=== PATIENT | female | born 1995 | race Asian ===

== ENCOUNTER 2017-05-27 04:51 | Emergency (ER) | payer MEDICAID ==
--- NOTE | 2017-05-27 05:03 | ED Physician Documentation ---
PD HPI FEMALE - Stated complaint Stated Complaint: FEMALE - Chief complaint Chief Complaint: Abd Pain - History obtained from History obtained from: Patient - History of Present Illness Timing - onset: Today Timing - details: Abrupt onset Associated symptoms: Pelvic pain, Hematuria Recently seen: Not recently seen - Additional information Additional information: Patient is a 21 year old female who is presenting to the emergency department for hematuria. patient states that she had rough sex and when she went to pee today the stream was mainly blood. Review of Systems Constitutional: denies: Fever, Chills Eyes: reports: Reviewed and negative Ears: reports: Reviewed and negative Nose: reports: Reviewed and negative Throat: reports: Reviewed and negative Cardiac: reports: Reviewed and negative Respiratory: reports: Reviewed and negative GI: denies: Abdominal Pain, Nausea, Vomiting, Constipation, Diarrhea : reports: Dysuria, Frequency, Hematuria. 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 - Past Surgical History Past Surgical History: No - Present Medications Home Medications: Ambulatory Orders Medication Instructions Recorded Confirmed Phenazopyridine HCl [Pyridium] 200 mg PO TID PRN #6 tablet 05/27/17 Sulfamethox/Trimeth 800/160 1 each PO BID #14 tablet 05/27/17 [Bactrim Ds 800/160] - Allergies Allergies/Adverse Reactions: Allergies Allergy/AdvReac Type Severity Reaction Status Date / Time No Known Drug Allergies Allergy Verified 05/27/17 04:59 - Social History Does the pt smoke?: No Smoking Status: Never smoker Does the pt drink ETOH?: No Does the pt have substance abuse?: No - Immunizations Immunizations are current?: Yes - POLST Patient has POLST: No PD ED PE NORMAL - Vitals Vital signs reviewed: Yes - General General: Alert and oriented X 3, No acute distress - HEENT HEENT: Atraumatic, PERRL - Neck Neck: Supple, no meningeal sign - Cardiac Cardiac: RRR - Respiratory Respiratory: No respiratory distress - Abdomen Abdomen: Soft - Derm Derm: Normal color, Warm and dry - Extremities Extremities: No deformity, No edema - Neuro Neuro: Alert and oriented X 3, No motor deficit, Normal speech Eye Opening: Spontaneous Motor: Obeys Commands Verbal: Oriented GCS Score: 15 PD ED PE EXPANDED - Female Female : Normal external, Normal exam. No: Skin lesions, Vaginal Bleeding, Vaginal Discharge Results - Vitals Vitals: Vital Signs - 24 hr 05/27/17 05/27/17 05/27/17 04:55 05:15 06:16 Temperature 36.5 C 36.7 C Heart Rate 96 78 Respiratory 18 17 16 Rate Blood Pressure 127/95 H 109/86 H O2 Saturation 100 97 Oxygen O2 Source Room air - Labs Labs: Laboratory Tests 05/27/17 05:17 Urine Color RED/BLOODY Urine Clarity BLOODY Urine pH 6.5 Ur Specific [place] >=1.030 H Urine Protein Urine Glucose (UA) NEGATIVE Urine Ketones NEGATIVE Urine Occult Blood LARGE H Urine Nitrite Urine Bilirubin COLOR INTERFERENCE Urine Urobilinogen Ur Leukocyte Esterase Urine RBC TNTC H Urine WBC 11-25 H Ur Squamous Epith Cells RARE Squamous Urine Bacteria Many H Ur Microscopic Review INDICATED Urine Culture Comments INDICATED Urine HCG, Qual NEGATIVE PD MEDICAL DECISION MAKING - ED course Complexity details: reviewed old records, reviewed results, re-evaluated patient , considered differential, d/w patient ED course: Patient was seen and examined at bedside. Patient's urine was grossly bloody but there was no sign of urethral or vaginal trauma. Patient's urinalysis was consistent with cystitis. Patient was educated on proper prevention and treated with bactrim and pyridium. Patient required no further work up and was stable for discharge with outpatient follow up. Departure - Departure Disposition: 01 Home, Self Care Clinical Impression: Cystitis with hematuria Condition: Good Instructions: ED UTI Cystitis Female Follow-Up: primary,care provider [Other] - Within 3 Days Prescriptions: Phenazopyridine HCl [Pyridium] 200 mg PO TID PRN #6 tablet PRN Reason: dysuria Sulfamethox/Trimeth 800/160 [Bactrim Ds 800/160] 1 each PO BID #14 tablet Comments: Your symptoms today are being caused by cystitis or bladder infection. You had your first dose of antibiotics today and will need to be on them for the next week. You should make sure you stay well hydrated. You should also make sure that you urinate after every sexual encounter. You should follow up with your doctor if your symptoms persist. You may return to the emergency department at any time for new, worsening or uncontrollable symptoms. Discharge Date/Time: 05/27/17 06:16
[2017-05-27 05:31] LABS: GLUCOSE, URINE (UA) NEGATIVE (NEGATIVE); KETONES,URINE (UA) NEGATIVE (NEGATIVE); OCCULT BLOOD,URINE LARGE (NEGATIVE); PH,URINE 6.5 PH (5.0-7.5)
[2017-05-27 05:33] LABS: CLARITY,URINE BLOODY (CLEAR)
[2017-05-27 05:34] LABS: BILIRUBIN,URINE COLOR INTERFERENCE (NEGATIVE)
[2017-05-27 05:35] LABS: BACTERIA,URINE Many /HPF (None Seen); HCG UR QUAL NEGATIVE; RBC,URINE TNTC /HPF (0-5); SQUAMOUS EPITHELIAL CELL,UR RARE Squamous (<= Few)
[2017-05-27] MEDS ORDERED: PHENAZOPYRIDINE 100 MG TABLET PO STA (05:54)
[2017-05-27] MEDS ORDERED: SULFAMETH/TRIMETH DS 800/160 MG TABLET PO STA (05:54)
[2017-05-27 06:17] VITALS: BP 109/86
== END 2017-05-27 06:16 | disposition home or self-care (01) ==
LOC: ED 04:51
DX: N30.91 Cystitis, unspecified with hematuria (principal)
CPT/HCPCS: 81001; 81025; 87086; 99283; A9270; 81003

== ENCOUNTER 2017-08-31 01:50 | Emergency (ER) | payer MEDICAID ==
--- NOTE | 2017-08-31 02:14 | ED Physician Documentation ---
PD HPI FEMALE - Stated complaint Stated Complaint: LOW ABD CRAMPING - Chief complaint Chief Complaint: Abd Pain - History obtained from History obtained from: Patient, Family - History of Present Illness Timing - onset: Today Timing - details: Gradual onset, Still present Associated symptoms: Pelvic pain, Hematuria Similar symptoms before: Work up / diagnostics, Treatment Recently seen: Not recently seen - Additional information Additional information: Patient is a 21 year old female with no significant past medical history who is presenting to the emergency department for hematuria. patient states that the symptoms started today. patient had the symptoms about 13 weeks ago and was diagnosed with cystis. Patient reports that her symptoms resolved with treatment at that time. Review of Systems Ten Systems: 10 systems reviewed and negative Constitutional: denies: Fever, Chills GI: reports: Abdominal Pain. 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 - Past Surgical History Past Surgical History: No - Present Medications Home Medications: Ambulatory Orders Medication Instructions Recorded Confirmed Phenazopyridine [Pyridium] 200 mg PO TID 6 Days tablet 08/31/17 Sulfamethox/Trimeth 800/160 1 each PO BID #14 tablet 08/31/17 [Bactrim Ds 800/160] - Allergies Allergies/Adverse Reactions: Allergies Allergy/AdvReac Type Severity Reaction Status Date / Time No Known Drug Allergies Allergy Verified 08/31/17 01:55 - Social History Does the pt smoke?: No Smoking Status: Never smoker Does the pt drink ETOH?: No Does the pt have substance abuse?: No - Immunizations Immunizations are current?: Yes - POLST Patient has POLST: No PD ED PE NORMAL - Vitals Vital signs reviewed: Yes - General General: Alert and oriented X 3, No acute distress - HEENT HEENT: Atraumatic - Cardiac Cardiac: RRR - Respiratory Respiratory: No respiratory distress - Abdomen Abdomen: Non distended - Derm Derm: Normal color, Warm and dry - Extremities Extremities: No deformity - Neuro Neuro: Alert and oriented X 3 Eye Opening: Spontaneous PD ED PE EXPANDED - Female Female : Other (gross hematuria) Results - Vitals Vitals: Vital Signs - 24 hr 08/31/17 01:53 Temperature 36.9 C Heart Rate 87 Respiratory 18 Rate Blood Pressure 112/86 H O2 Saturation 98 Oxygen O2 Source Room air - Labs Labs: Laboratory Tests 08/31/17 02:00 Urine Color RED/BLOODY Urine Clarity BLOODY Urine pH 6.0 Ur Specific [place] >=1.030 H Urine Protein >=300 H Urine Glucose (UA) NEGATIVE Urine Ketones TRACE Urine Occult Blood LARGE H Urine Nitrite NEGATIVE Urine Bilirubin NEGATIVE Urine Urobilinogen 0.2 (NORMAL) Ur Leukocyte Esterase NEGATIVE Urine RBC TNTC H Urine WBC 0-3 Ur Squamous Epith Cells NONE SEEN Urine Bacteria None Seen Ur Microscopic Review INDICATED Urine Culture Comments NOT INDICATED Urine HCG, Qual NEGATIVE PD MEDICAL DECISION MAKING - ED course Complexity details: reviewed old records, reviewed results, re-evaluated patient , considered differential, d/w patient, d/w family ED course: Patient was seen and examined at bedside. Patient's urine was collected and sent. Findings were consistent with cystitis. Patient was not . Patient was treated with bactrim and pyridium. patient required no further work up and was stable for discharge with outpatient follow up. Departure - Departure Disposition: 01 Home, Self Care Clinical Impression: Cystitis with hematuria Condition: Good Instructions: ED UTI Cystitis Female Follow-Up: primary,care provider [Other] Prescriptions: Phenazopyridine [Pyridium] 200 mg PO TID 6 Days tablet Sulfamethox/Trimeth 800/160 [Bactrim Ds 800/160] 1 each PO BID #14 tablet Comments: Your symptoms today are likely being caused by a urinary tract infection based on your symptoms and previous diagnosis. You had your first dose of antibiotics and will need to be on them for the next week. You should stay well hydrated and make sure you urinate after sexual interactions and keep your vaginal area clean. You should follow up with your doctor as this is a repeat occurrence and you might night a cystoscopy (a scope of your bladder). You may return to the emergency department at any time for new, worsening or uncontrollable symptoms.
[2017-08-31 02:24] LABS: BILIRUBIN,URINE NEGATIVE (NEGATIVE); GLUCOSE, URINE (UA) NEGATIVE (NEGATIVE); KETONES,URINE (UA) TRACE mg/dL (NEGATIVE); LEUKOCYTE ESTERASE, URINE NEGATIVE (NEGATIVE); NITRITE,URINE NEGATIVE (NEGATIVE); OCCULT BLOOD,URINE LARGE (NEGATIVE); PROTEIN,URINE >=300 mg/dL (NEGATIVE); UROBILINOGEN,URINE 0.2 (NORMAL) E.U./dL (NORMAL)
[2017-08-31 02:27] LABS: BACTERIA,URINE None Seen /HPF (None Seen); CLARITY,URINE BLOODY (CLEAR); HCG UR QUAL NEGATIVE; RBC,URINE TNTC /HPF (0-5); SQUAMOUS EPITHELIAL CELL,UR NONE SEEN (<= Few)
[2017-08-31] MEDS ORDERED: PHENAZOPYRIDINE 100 MG TABLET PO STA (02:31)
[2017-08-31] MEDS ORDERED: SULFAMETH/TRIMETH DS 800/160 MG TABLET PO STA (02:31)
[2017-08-31 02:50] VITALS: BP 114/87
== END 2017-08-31 02:50 | disposition home or self-care (01) ==
LOC: ED 01:50
DX: N30.01 Acute cystitis with hematuria (principal)
CPT/HCPCS: 81001; 81025; 99283; A9270; 81003; 87086